=== PATIENT | male | born 1980 | race Caucasian/White ===

== ENCOUNTER 2016-10-10 21:07 | Emergency (ER) | payer OTHER ==
[~2016-10-10] VITALS: Ht 193 cm; Wt 80.0 kg
[2016-10-10 21:14] VITALS: TEMP 36.7; Ht 193 cm; Wt 80.0 kg
[2016-10-10] MEDS ORDERED: LIDOCAINE/EPINEPH/TETRACAINE 1 EA SYR EXT STA (21:25)
--- NOTE | 2016-10-10 21:53 | DIAGNOSTIC IMAGING REPORT ---
HEAD WITHOUT CONTRAST (CT) CT DOSE: 959.88 mGy.cm HISTORY: Trauma Head trauma, lac to right eye TECHNIQUE: Multiaxial CT images of the head were performed without the use of intravenous contrast. A dose lowering technique was utilized adhering to the principles of ALARA. Comparison: None. Findings: The paranasal sinuses and mastoid air cells are clear. The calvarium and skull base are intact. The ventricles and sulci are within normal limits. There is no mass, hematoma, midline shift, or acute infarct. Impression: No acute intracranial abnormality. The above report was generated using voice recognition software. It may contain grammatical, syntax or spelling errors. Electronically signed by: Diego Puente M.D. 10/10/2016 9:52 PM Dictated Date/Time: 10/10/2016 9:51 PM
--- NOTE | 2016-10-10 22:01 | DIAGNOSTIC IMAGING REPORT ---
CERVICAL SPINE W/O CT DOSE: HISTORY: Trauma Head trauma, lac to right eye TECHNIQUE: Multiaxial CT images of the cervical spine were performed and reformatted in the sagittal and coronal plane without the use of contrast. A dose lowering technique was utilized adhering to the principles of ALARA. COMPARISON: None. FINDINGS: No fractures. No subluxation. Prevertebral soft tissues and the C1-C2 interval are intact. No pneumothorax. Fibrotic and emphysematous change pulmonary apices IMPRESSION: No fractures within the cervical spine. Mild degenerative change. The above report was generated using voice recognition software. It may contain grammatical, syntax or spelling errors. Electronically signed by: Diego Puente M.D. 10/10/2016 9:59 PM Dictated Date/Time: 10/10/2016 9:58 PM
[2016-10-10] MEDS ORDERED: NORT10CA2 PO (22:03)
[2016-10-10] MEDS ORDERED: GABA-113 PO (22:03)
--- NOTE | 2016-10-10 22:06 | EMERGENCY ROOM VISIT NOTE ---
ED Visit Note First contact with patient: 21:16 Chief Complaint: "Laceration". History of Present Illness: This patient is a 35-year-old male who presents to the Emergency Department via ambulance for evaluation of their right for head laceration. Patient sustained the laceration while attempting to secure a strap on a truck when the bar struck him in the head knocking his hat and glasses off of his head. He notes he was on the clock/working at the time this occurred. They report a moderate amount of bleeding initially. They report no loss of consciousness. They deny any headache, visual disturbance, nausea, vomiting, or neck pain. He notes he did feel little lightheaded initially. Patient rates his current discomfort as minimal. Patient's Tetanus status is believed to be currently up-to-date. Medications: As noted below Allergies: None PMH: No pertinent SHx: Patient is a straight truck driver, and lives in [place]. ROS: All pertinent positive and negative review of systems are appropriately documented in the History of Present Illness. Physical Exam: VITAL SIGNS - Vital signs and nursing notes were reviewed. Stable. GENERAL -35-year-old male appearing his stated age. Communicates well with provider and answers questions appropriately. SKIN - There is a 3 cm laceration noted in a linear fashion just above the right eyebrow. The edges gape apart with traction. There is minimal active bleeding appreciated. No deep structures including vessels, musculature, or gross bony structures are appreciated. HEAD - Normocephalic. No Cleveland's Sign or Raccoon's Eyes. No depressed skull fractures palpable. EYES - PERRL with EOMI bilaterally. Without subconjunctival hemorrhage. No hyphema EARS - No deformities of external structures noted on gross examination bilaterally. No hemotympanum present. No tympanic perforation noted. NOSE - Midline and without cyanosis. No epistaxis or clear watery discharge noted. Septum midline without deviation. No septal hematoma noted. No overlying ecchymosis noted. MOUTH/OROPHARYNX - Without perioral cyanosis. Tongue midline with equal elevation of palate bilaterally. No blood noted in the oropharynx. No tonsillar hypertrophy, erythema, or exudates noted. No dental fractures noted. NECK - FROM assessed. No tenderness to palpation over the cervical spinous processes. No cervical paraspinal muscle tenderness noted. LUNGS - Chest wall symmetric without accessory muscle use, intercostals retractions, or central cyanosis. Normal vesicular breath sounds CTA B/L. No wheezes, rales, or rhonchi appreciated. CARDIAC - RRR with S1/S2. No murmur, rubs, or gallops appreciated. EXTREMITIES - No gross deformities noted of the extremities. +3/5 radial pulses palpated throughout. +5/5 strength noted in UE/LE bilaterally. NEUROLOGIC - Cranial nerves II through XII grossly intact. Sensory intact to light touch throughout. PSYCH - A&Ox3 and cooperates fully with examiner. Pt is very pleasant and interacts well with examiner. IMAGING: HEAD WITHOUT CONTRAST (CT) CT DOSE: 959.88 mGy.cm HISTORY: Trauma Head trauma, lac to right eye TECHNIQUE: Multiaxial CT images of the head were performed without the use of intravenous contrast. A dose lowering technique was utilized adhering to the principles of ALARA. Comparison: None. Findings: The paranasal sinuses and mastoid air cells are clear. The calvarium and skull base are intact. The ventricles and sulci are within normal limits. There is no mass, hematoma, midline shift, or acute infarct. Impression: No acute intracranial abnormality. The above report was generated using voice recognition software. It may contain grammatical, syntax or spelling errors. Electronically signed by: Diego Puente M.D. 10/10/2016 9:52 PM Dictated Date/Time: 10/10/2016 9:51 PM CERVICAL SPINE W/O CT DOSE: HISTORY: Trauma Head trauma, lac to right eye TECHNIQUE: Multiaxial CT images of the cervical spine were performed and reformatted in the sagittal and coronal plane without the use of contrast. A dose lowering technique was utilized adhering to the principles of ALARA. COMPARISON: None. FINDINGS: No fractures. No subluxation. Prevertebral soft tissues and the C1-C2 interval are intact. No pneumothorax. Fibrotic and emphysematous change pulmonary apices IMPRESSION: No fractures within the cervical spine. Mild degenerative change. The above report was generated using voice recognition software. It may contain grammatical, syntax or spelling errors. Electronically signed by: Diego Puente M.D. 10/10/2016 9:59 PM Dictated Date/Time: 10/10/2016 9:58 PM ED Course: Patient was seen and evaluated by myself. Patient had no focal neurological deficits. Patient's exam is otherwise unremarkable. Patient reports no headaches , visual disturbances, nausea, vomiting, or over-lethargy. Because of the mechanism of injury, and the patient noting that he felt lightheaded status post the event I did elect to obtain CT scan of the head and C-spine. Results as above. These were discussed with the patient. Risks and benefits of performing primary wound closure versus no repair were discussed with the patient who verbalizes understanding. Verbal consent was obtained prior to performing the procedure. 4 cc of 1% buffered lidocaine with epinephrine was used to anesthetize the 3 cm forehead laceration. The wound was cleansed and prepped in the typical sterile fashion utilizing normal saline and Betadine. The wound was sterilely draped. Once proper anesthetization was established, the wound was further examined and demonstrated no deep involvement. The wound was copiously irrigated with normal saline and Betadine. The wound was closed using 7 simple, 6-0 nylon sutures with the wound edges being well approximated. Patient tolerated the procedure well. No complications were met. The wound was cleansed and dressed with a Bacitracin dressing. Patient educated on worrisome symptoms for return visit to the Emergency Department. Patient discharged to home in good condition. In the evaluation and treatment of this patient, the following differential diagnoses were considered: Concussion, Contrecoup Injury, Brain Tumor, Depression, Encephalitis, Hypothyroidism, Meningitis, CVA, TIA, Migraine, Cluster Headache, Intracranial Abnormality, Intracranial Hemorrhage, Subdural Hematoma, Subarachnoid Hemorrhage, Hydrocephalus, Musculoskeletal Strain, Discitis, Cervical Spine Fracture, Cervical Spine Dislocation, Cervical Spine Subluxation, Cervical Spondylosis, Fibromyalgia, Osteoarthritis, Polymyalgia Rheumatica, Psychogenic Pain Disorder, Tumor of Soft Tissue or Spine. Current/Historical Medications Scheduled Gabapentin (Neurontin), 300 MG PO QID Nortriptyline (Pamelor), 30 MG PO HS Allergies Coded Allergies: No Known Allergies (Unverified , 10/10/16) Vital Signs Date Time Temp Pulse Resp B/P (MAP) Pulse Ox O2 Delivery O2 Flow Rate FiO2 10/10/16 23:16 88 16 120/78 97 10/10/16 21:14 36.7 73 16 135/86 98 Room Air Medications Administered Medications (Trade) Dose Ordered Sig/Yana Route Start Time Stop Time Status Last Admin Dose Admin Tetracaine/ Epinephrine/ Lidocaine (L.e.t. Gel 4%/ 1:100/0.5%) 1 ea NOW STAT EXT 10/10/16 21:25 10/10/16 21:27 DC 10/10/16 21:43 1 EA Departure Information Impression Primary Impression: Closed head injury Additional Impression: Facial laceration Dispostion Home / Self-Care Condition GOOD Patient Instructions My [facility] Additional Instructions Discharge Instructions: You have received 7 sutures on your face. These sutures are NOT dissolvable and WILL need to be removed by a health care provider in 7 days. You can return to the Emergency Department or contact your Primary Care Provider to have the sutures removed. Proper wound care is essential for adequate wound healing and infection prevention. You can shower and clean the wound with soap and water. Do not scour over the wound, pat dry with a towel. Do not submerse the wound (i.e. bathe or dish wash) until the sutures have been removed. You can use an antibiotic ointment with a dressing over the wound for the next 2-3 days. After this time you may leave the wound dry and open to the air. If crust develops over the wound you can use a Q-tip to apply a 1:1 peroxide:water solution to clean the wound. Look for signs of infection of the wound including: increased pain, swelling, foul discharge, streaking, or increased temperature. If any of these are noticed you should return to the Emergency Department for further assessment and treatment. As with any laceration you may have received nerve damage to the surrounding tissues. This damage may or may not be permanent. You should keep the area covered with sunscreen for the first 6 months to 1 year when at risk for exposure to help minimize scarring. You can also use scar reducing creams or Vitamin E oil to help minimize scarring. Please follow-up with the approval workman's comp individual regarding your injuries today. For pain control, you can use the following bjer-wbc-lptartt medicines (if >12 yo): - Regular strength (325mg/tab) Tylenol (acetaminophen) 2 tabs every 4-6 hours as needed. Do not exceed 12 tablets in a 24 hour period. Avoid taking more than 3 grams (3000 mg) of Tylenol per day. This includes any other sources of acetaminophen you may take on a regular basis. - Regular strength (200 mg/tab) Advil (ibuprofen) 1-2 tabs every 4-6 hours as needed. Do not exceed a dose of 3200 mg per day. Return to the emergency department if your symptoms worsen despite treatment course outlined above. I at this time will not implement any restrictions to your work, unless you developed headache, vision change nausea or vomiting. IMAGING: HEAD WITHOUT CONTRAST (CT) CT DOSE: 959.88 mGy.cm HISTORY: Trauma Head trauma, lac to right eye TECHNIQUE: Multiaxial CT images of the head were performed without the use of intravenous contrast. A dose lowering technique was utilized adhering to the principles of ALARA. Comparison: None. Findings: The paranasal sinuses and mastoid air cells are clear. The calvarium and skull base are intact. The ventricles and sulci are within normal limits. There is no mass, hematoma, midline shift, or acute infarct. Impression: No acute intracranial abnormality. The above report was generated using voice recognition software. It may contain grammatical, syntax or spelling errors. Electronically signed by: Diego Puente M.D. 10/10/2016 9:52 PM Dictated Date/Time: 10/10/2016 9:51 PM CERVICAL SPINE W/O CT DOSE: HISTORY: Trauma Head trauma, lac to right eye TECHNIQUE: Multiaxial CT images of the cervical spine were performed and reformatted in the sagittal and coronal plane without the use of contrast. A dose lowering technique was utilized adhering to the principles of ALARA. COMPARISON: None. FINDINGS: No fractures. No subluxation. Prevertebral soft tissues and the C1-C2 interval are intact. No pneumothorax. Fibrotic and emphysematous change pulmonary apices IMPRESSION: No fractures within the cervical spine. Mild degenerative change. The above report was generated using voice recognition software. It may contain grammatical, syntax or spelling errors. Electronically signed by: Diego Puente M.D. 10/10/2016 9:59 PM Dictated Date/Time: 10/10/2016 9:58 PM Problem Qualifiers
[2016-10-10] MEDS ORDERED: LIDOCAINE/EPINEPHRINE 1% 20 ML VIAL INFIL STA (22:29)
[2016-10-10 23:16] VITALS: BP 120/78; PULSE 88; O2SAT 97
== END 2016-10-10 23:16 | disposition home or self-care (01) ==
LOC: C.EDD 21:09
DX: S09.90XA Unspecified injury of head, initial encounter (principal); S01.111A Laceration without foreign body of right eyelid and periocular area, initial encounter; Z79.899 Other long term (current) drug therapy; W22.8XXA Striking against or struck by other objects, initial encounter